=== PATIENT | female | born 1955 | race Caucasian/White ===

== ENCOUNTER 2019-11-07 11:09 | Emergency (ER) | payer BC ==
--- NOTE | 2019-11-07 12:05 | EDM.PDOC ---
ED HPI GENERAL MEDICAL PROBLEM - General Chief Complaint: Chest Pain Stated Complaint: SENT FROM [facility] Time Seen by Provider: 11/07/19 11:30 Source of Information: Reports: Patient History Limitations: Reports: No Limitations - History of Present Illness INITIAL COMMENTS - FREE TEXT/NARRATIVE: 64-year-old female was over at the clinic and the surgical department getting a follow-up appointment for weight loss when she mentioned recurring chest pressure she was developing at night on an ongoing basis for the last several weeks. An EKG was done which showed some ST changes so she was sent to the emergency room. She had a full workup earlier this year prior to eye surgery including an echocardiogram which was reassuring, she also knows she's been told she has a "bundle branch block" in the past. She has no significant symptoms while active, in fact she participates in a move program, which is exercise, without any problems. While she is lying on her back she feels pressure in her chest, and it seems worse if she flexes her neck and places her chin on her chest. She is concerned it may have an anxiety component as well, she really has no history of chronic reflux. No significant shortness of breath or diaphoresis. Onset: Unknown/Unsure (Symptoms have been ongoing for weeks) Associated Symptoms: Reports: Chest Pain (More of a pressure than a pain, no radiation). Denies: Diaphoresis, Malaise, Nausea/Vomiting, Shortness of Breath , Weakness Upper Abdomen Pain Score (Numeric/FACES): 2 - Related Data Allergies Allergy/AdvReac Type Severity Reaction Status Date / Time No Known Allergies Allergy Verified 11/07/19 11:25 Home Meds: Home Meds Cholecalciferol (Vitamin D3) [Vitamin D3] 2 tab PO DAILY 11/26/16 [History] L.acidoph,Paracasei, B.lactis [Probiotic] 1 cap PO DAILY 11/26/16 [History] Multivitamin [Daily Multiple Vitamin] 1 tab PO DAILY 11/26/16 [History] buPROPion [buPROPion XL] 300 tab PO DAILY 11/26/16 [History] hydrOXYzine HCL [hydrOXYzine] 25 mg PO BEDTIME 11/26/16 [History] Naltrexone 25 mg PO BID 11/07/19 [History] Past Medical History HEENT History: Reports: Impaired Vision Gastrointestinal History: Reports: Gastritis [employer] History: Reports: Musculoskeletal History: Reports: Fracture Other Musculoskeletal History: Prostatic elbow r wrist Psychiatric History: Reports: Anxiety, Depression - Infectious Disease History Infectious Disease History: Reports: Chicken Pox, Measles, Mumps, Shingles - Past Surgical History GI Surgical History: Reports: Colonoscopy Social & Family History - Tobacco Use Smoking Status *Q: Never Smoker Second Hand Smoke Exposure: No - Caffeine Use Caffeine Use: Reports: Coffee, Soda - Alcohol Use Days Per Week of Alcohol Use: 0 - Recreational Drug Use Recreational Drug Use: No ED ROS GENERAL - Review of Systems Review Of Systems: See Below Constitutional: Denies: Fever, Chills, Malaise HEENT: Reports: Other (Globus sensation in her throat at times) Respiratory: Denies: Shortness of Breath, Pleuritic Chest Pain, Cough Cardiovascular: Reports: Chest Pain (See history of present illness). Denies: Palpitations GI/Abdominal: Denies: Abdominal Pain, Nausea, Vomiting Musculoskeletal: Reports: No Symptoms Skin: Reports: No Symptoms Neurological: Denies: Dizziness, Headache Psychiatric: Reports: Anxiety ED EXAM, GENERAL - Physical Exam Exam: See Below Exam Limited By: No Limitations General Appearance: Alert, No Apparent Distress Eye Exam: Bilateral Eye: Normal Inspection Head: Atraumatic Neck: Supple, Non-Tender Respiratory/Chest: No Respiratory Distress, Lungs Clear Cardiovascular: Regular Rate, Rhythm, No Murmur. No: Extra Beats GI/Abdominal: Soft, Non-Tender Extremities: Normal Inspection. No: Pedal Edema Neurological: Alert, Oriented Psychiatric: Normal Affect, Normal Mood Course - Vital Signs Last Recorded V/S: Last Vital Signs Temp 98.1 F 11/07/19 11:35 Pulse 64 11/07/19 11:35 Resp 14 11/07/19 11:35 BP 173/93 H 11/07/19 11:35 Pulse Ox 96 11/07/19 11:35 - Orders/Labs/Meds Labs: Laboratory Tests 11/07/19 11/07/19 Range/Units 11:57 11:57 WBC 3.9 L (4.5-11.0) K/uL RBC 4.94 (3.30-5.50) M/uL Hgb 13.6 (12.0-15.0) g/dL Hct 40.7 (36.0-48.0) % MCV 82 (80-98) fL MCH 28 (27-31) pg MCHC 33 (32-36) % Plt Count 186 (150-400) K/uL Neut % (Auto) 46 (36-66) % Lymph % (Auto) 36 (24-44) % Yell % (Auto) 13 H (2-6) % Eos % (Auto) 4 (2-4) % Baso % (Auto) 1 (0-1) % Sodium 139 L (140-148) mmol/L Potassium 3.8 (3.6-5.2) mmol/L Chloride 103 (100-108) mmol/L Carbon Dioxide 27 (21-32) mmol/L Anion Gap 12.8 (5.0-14.0) mmol/L BUN 19 H (7-18) mg/dL Creatinine 1.0 (0.6-1.0) mg/dL Est Cr Clr Drug Dosing 49.72 mL/min Estimated GFR (MDRD) 56 L (>60) Glucose 90 (74-106) mg/dL Calcium 9.8 (8.5-10.1) mg/dL Troponin I < 0.017 (0.000-0.056) ng/mL - Re-Assessments/Exams Free Text/Narrative Re-Assessment/Exam: 11/07/19 12:04 [address] does [address] some [address] changes but they may have been present in the past so hopefully we can get her previous EKG from the clinic as they're not available here in the emergency room. A CBC BMP and troponin were drawn for reassurance although this sounds more GI or anxiety related than it is cardiac. 11/07/19 12:27 EKG was retrieved from the clinic from 10 months ago, actually looked worse at the time with a more significant bundle branch block. Troponin is 0. I don't think a stress test is really warranted as she is exercising vigorously several times a week without any problem and her symptoms are all at night while lying down. I recommended 20 mg of omeprazole daily for the next 2 weeks and continue activity as tolerated. If she starts developing any symptoms while exercising she should stop and be rechecked. Departure - Departure Time of Disposition: 12:35 Disposition: Home, Self-Care 01 Clinical Impression: Atypical chest pain - Discharge Information Instructions: Nonspecific Chest Pain Referrals: PCP,None [Primary Care Provider] - Forms: ED Department Discharge Care Plan Goals: Continue activity as tolerated and recheck at any time if symptoms are occurring during exercise. Consider 20 mg of omeprazole daily for the next 2-3 weeks. Sepsis Event Note - Evaluation Sepsis Screening Result: No Definite Risk - Focused Exam Vital Signs: Vital Signs Temp Pulse Resp BP Pulse Ox 11/07/19 11:35 98.1 F 64 14 173/93 H 96 11/07/19 11:22 98.1 F 64 14 173/93 H 96 Date Exam was Performed: 11/07/19 Time Exam was Performed: 17:01
== END 2019-11-07 12:36 | disposition home or self-care (01) ==
LOC: JP.ED 11:09
DX: R07.89 Other chest pain (principal); F41.9 Anxiety disorder, unspecified; F32.9 Major depressive disorder, single episode, unspecified; Z79.899 Other long term (current) drug therapy
CPT/HCPCS: 36415; 80048; 84484; 85025; 99284

== ENCOUNTER 2022-05-05 08:23 | Day surgery (SDC) | payer MEDICARE ==
[~2022-05-05 08:23] MED LIST: Midazolam 1 MG/ML 2 ML SDV ONE; Propofol 200 MG/20 ML SDV ONE; fentaNYL 100 MCG/2 ML SDV ONE
[2022-05-05] MEDS ORDERED: Dextrose 5%-Lactated Ringers 1,000 ML IV SCH (09:00)
[2022-05-05] MEDS ORDERED: Glycopyrrolate 0.2 MG/ML 2 ML SDV IVPUSH ONE (09:30)
[2022-05-05] MEDS ORDERED: Pantoprazole 40 MG Vial IVPUSH ONE (10:30)
== END 2022-05-05 11:19 | disposition home or self-care (01) ==
LOC: JP.SDS 08:23
PROVIDERS: ATTEND Surgery
DX: K20.90 Esophagitis, unspecified without bleeding (principal); K44.9 Diaphragmatic hernia without obstruction or gangrene; I10 Essential (primary) hypertension; G47.33 Obstructive sleep apnea (adult) (pediatric)
CPT/HCPCS: 43239; 87081; 88305; C9113; J2250; J2704; J3010; J3490; J7121

== ENCOUNTER 2023-05-18 16:11 | Emergency (ER) | payer MEDICARE ==
[2023-05-18] MEDS ORDERED: Aspirin 81 MG Tab.Chew PO ONE (16:30)
[2023-05-18] MEDS ORDERED: Sodium Chloride 0.9% 10 ML Syringe FLUSH PRN (16:30)
[2023-05-18] MEDS ORDERED: Nitroglycerin 0.4 MG Tab.SL SL ONE (16:30)
[2023-05-18 16:41] LABS: BASOPHILS ABSOLUTE AUTO 0.04 K/uL (0.00-0.10); BASOPHILS PERCENT AUTO 0.8 % (0.1-1.3); EOSINOPHILS ABSOLUTE AUTO 0.19 K/uL (0.00-0.40); EOSINOPHILS PERCENT AUTO 3.6 % (0.0-5.4); HEMATOCRIT 40.4 % (34.3-46.0); HEMOGLOBIN 14.2 g/dL (11.2-15.5); IMMATURE GRAN PERCENT AUTO 0.4 % (0.0-0.7); LYMPHOCYTES ABSOLUTE AUTO 1.65 K/uL (0.8-3.3); LYMPHOCYTES PERCENT AUTO 31.4 % (11.4-47.7); MEAN CORPUSCULAR HEMOGLOBIN 28.6 pg (31.6-35.5); MEAN CORPUSCULAR HGB CONC 35.1 g/dL (31.6-35.5); MEAN CORPUSCULAR VOLUME 81.3 fL (81.4-99.0); MONOCYTES PERCENT AUTO 9.5 % (3.3-12.6); NEUTROPHILS ABSOLUTE AUTO 2.85 K/uL (1.0-7.6); NEUTROPHILS PERCENT AUTO 54.3 % (40.0-78.1); PLATELET COUNT,PLT 186 K/uL (130-375); RED BLOOD CELL COUNT 4.97 M/uL (3.77-5.24); WHITE BLOOD CELL COUNT,WBC 5.3 K/uL (3.2-11.0)
[2023-05-18 16:45] LABS: IMMATURE GRAN ABSOLUTE AUTO 0.02 K/uL (0.00-0.23)
[2023-05-18 17:03] LABS: PROTHROMBIN TIME 9.8 sec (9.2-10.6); PTT,PARTIAL THROMBOPLSTIN TIME 21.9 sec (21.8-27.3)
[2023-05-18 17:05] LABS: BLOOD UREA NITROGEN,BUN 18 mg/dL (7-18); CALCIUM 9.9 mg/dL (8.5-10.1); CARBON DIOXIDE,CO2 27 mmol/L (21-32); CHLORIDE,CL 104 mmol/L (100-108); ESTIMATED GFR 62 mL/min (>60); GLUCOSE RANDOM 105 mg/dL (74-106); POTASSIUM,K 3.6 mmol/L (3.6-5.2); SODIUM,NA 139 mmol/L (140-148); TROPONIN I HIGH SENSITIVITY 6.4 pg/mL (<=60.3)
[2023-05-18 17:06] LABS: ANION GAP 11.6 mmol/L (5.0-14.0)
[2023-05-18] MEDS ORDERED: Ondansetron 4 MG Tab.DIS PO ONE (19:04)
[2023-05-18] MEDS ORDERED: Aluminum Hydroxide/Magnesium Hydroxide/Simethicone Susp 30 ML Cup PO STA (19:23)
[2023-05-18] MEDS ORDERED: Sucralfate 1 GM Tab PO ONE (20:04)
== END 2023-05-18 20:10 | disposition home or self-care (01) ==
LOC: JP.ED 16:11
DX: K21.00 Gastro-esophageal reflux disease with esophagitis, without bleeding (principal); R07.89 Other chest pain; I10 Essential (primary) hypertension; Z79.899 Other long term (current) drug therapy
CPT/HCPCS: 36415; 80048; 84484; 85025; 85379; 85610; 85730; 93005; 99285; A9270; J3490; Q0162